=== PATIENT | female | born 1940 | race Caucasian/White ===

== ENCOUNTER 2017-06-22 21:15 | Inpatient (IN) | payer OTHER ==
[~2017-06-22] VITALS: Ht 152.4 cm; Wt 69.9 kg
[~2017-06-22 21:15] MED LIST: ACYCLOVIR 400400 MG PO; DENAVIR1.5 GM; FENOFIBRATE160 MG PO; GLYBURIDE 2.52.5 MG PO; LOPRESSOR50 PO; PENTOXIFYLLINE400 MG PO; TRAMADOL 50 MG50 MG PO; ZESTORETIC 20-1 EAC3 PO; ZOCOR40 MG PO; ZOFRAN4 MG PO
[2017-06-22] MEDS ORDERED: COZAAR 50 MG TA50 M2 PO (21:22)
[2017-06-22] MEDS ORDERED: SYNTHROID50 MCG PO (21:22)
[2017-06-22] MEDS ORDERED: ALDACTONE25 MG (21:22)
[2017-06-22] MEDS ORDERED: OMEPRAZOLE40 MG PO (21:23)
[2017-06-22] MEDS ORDERED: PENTOXIFYLLINE400 MG PO (21:23)
[2017-06-22] MEDS ORDERED: AMARYL2 MG PO (21:24)
[2017-06-22 21:25] VITALS: BP 163/56
[2017-06-22 21:49] LABS: URINE BILIRUBIN NEGATIVE (Negative); URINE BLOOD NEGATIVE (Negative); URINE CLARITY CLEAR; URINE COLOR YELLOW; URINE GLUCOSE-RANDOM NEGATIVE (Negative); URINE KETONES NEGATIVE (Negative); URINE LEUKOCYTES-REFLEX TRACE (Negative); URINE NITRITE-REFLEX NEGATIVE (Negative); URINE PROTEIN NEGATIVE (Negative); URINE UROBILINOGEN 0.2 E.U./dl (0.2-1.0)
[2017-06-22 21:53] LABS: ABSOLUTE EOSINOPHILS 0.1 thou/uL (0.0-0.7); ABSOLUTE LYMPHOCYTES 2.5 thou/uL (0.8-5.3); ABSOLUTE MONOCYTES 0.7 thou/uL (0.0-1.2); ABSOLUTE NEUTROPHILS 4.3 thou/uL (1.6-8.1); BASOPHILS 0.5 %; EOSINOPHILS 1.4 %; HEMATOCRIT 41.1 % (37.0-47.0); HEMOGLOBIN 12.9 gm/dL (12.0-15.0); LYMPHOCYTES 32.4 %; MCH 28.6 pg (26.0-34.0); MCHC 31.4 g/dL (28.0-37.0); MCV 91.2 fL (80.0-100.0); MONOCYTES 8.8 %; MPV 8.4 fl. (7.2-11.1); NUCLEATED RBCS 0 /100WBC; PLATELET COUNT* 233 thou/uL (150-400); POLYS 56.9 %; RBC 4.51 mil/uL (4.20-5.00); WBC 7.6 thou/uL (4.0-11.0)
[2017-06-22 21:58] LABS: CALCIUM 9.9 mg/dL (8.5-10.1); CREATININE 1.5 mg/dL (0.6-1.3); POTASSIUM 5.6 mmol/L (3.5-5.1)
[2017-06-22 22:03] LABS: ALBUMIN 3.6 g/dL (3.4-5.0); TOTAL BILIRUBIN 0.5 mg/dL (<0.1-1.0); TOTAL PROTEIN 7.8 g/dL (6.4-8.2)
[2017-06-22 22:26] LABS: HYALINE CASTS 0-3 Few /LPF (None Seen); MUCUS None Seen strn/LPF (None Seen); SQUAMOUS >10 Many /LPF (0-3)
[2017-06-22 22:27] LABS: BACTERIA-REFLEX 1-9 Few /HPF (None Seen); CRYSTALS None Seen /LPF (None Seen); URINE RBC None Seen /HPF (0-2); URINE WBC-REFLEX 0-5 Rare /HPF (0-5)
[2017-06-23 00:43] VITALS: BP 150/52
[2017-06-23 04:17] VITALS: BP 120/52
[2017-06-23 05:41] LABS: CALCIUM 9.5 mg/dL (8.5-10.1); CREATININE 1.2 mg/dL (0.6-1.3); POTASSIUM 5.8 mmol/L (3.5-5.1)
[2017-06-23 07:45] VITALS: BP 130/57
--- NOTE | 2017-06-23 12:00 | EKG ---
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 113 35 Ras Echeverria MD, FAC /EPI
[2017-06-23 12:23] VITALS: BP 148/37
[2017-06-23 12:49] LABS: POTASSIUM 5.7 mmol/L (3.5-5.1)
--- NOTE | 2017-06-23 15:21 | 2DMMODE ---
[place] [address] 2 D/M-MODE ECHOCARDIOGRAM Name: VIOLADANAKARINAYOUSIF Room: [place] [address] ADM IN [facility]#: [id number] Admission: 06/23/17 Attend Phys: Kenzie Leslie, Discharge: Date of : 42 Date of Service: 06/23/17 1520 Report #: [id number] THIS REPORT FOR: //name// APPROVED REPORT Study performed: 06/23/2017 10:20:28 EXAM: Comprehensive 2D, Doppler, and color-flow Echocardiogram Patient Location: In-Patient Room #: [facility] Status: routine BSA: 1.67 HR: 56 bpm BP: 130/57 mmHg Rhythm: NSR Other Information Study Quality: Good Indications Hypertension/HDD Hyperkalemia, elevated potassium 2D Dimensions LVEF(%): 66.72 (>50%) IVSd: 16.97 (7-11mm) LVOT Diam: 21.47 (18-24mm) LVDd: 43.09 mm PWd: 12.35 (7-11mm) Ascending Ao: 29.93 (22-36mm) LVDs: 27.31 (25-40mm) Aortic Root: 28.43 mm Ceballos's LVEF: 66.72 % Volumes Left Atrial Volume (Systole) LA ESV Index: 26.60 mL/m2 Aortic Valve AoV Peak Munir.: 1.23 m/s AO Peak Gr.: 6.06 mmHg LVOT Max P.00 mmHg AO Mean Gr.: 2.86 mmHg LVOT Mean P.25 mmHg LVOT Max V: 0.87 m/s AO V2 VTI: 29.20 cm LVOT Mean V: 0.50 m/s BILLIE (VTI): 2.70 cm2 LVOT V1 VTI: 21.75 [place] [address] 2 D/M-MODE ECHOCARDIOGRAM Name: YOUSIF PINZON Room: [address] IN .R.#: [id number] Admission: 06/23/17 Attend Phys: Kenzie Leslie, Discharge: Date of : 42 Date of Service: 06/23/17 1520 Report #: [id number] E/A Ratio: 0.95 MV Decel. Time: 215.48 ms MV E Max Munir.: 0.71 m/s MV PHT: 62.49 ms MVA (PHT): 3.52 cm2 TDI E/Lateral E': 5.92 E/Medial E': 10.14 Medial E' Munir.: 0.07 m/s Lateral E' Munir.: 0.12 m/s Pulmonary Valve PV Peak Munir.: 0.90 m/s PV Peak Gr.: 3.27 mmHg Tricuspid Valve TR Peak Gr.: 24.54 mmHg RVSP: 29.00 mmHg Left Ventricle The left ventricle is normal size. There is normal LV segmental wall motion. Mild concentric left ventricular hypertrophy. Left ventricular systolic function is normal. The left ventricular ejection fraction is within the normal range. LVEF is 55-60%. The left ventricular diastolic function is normal. Right Ventricle The right ventricle is normal size. The right ventricular systolic function is normal. Atria The left atrium size is normal. The right atrium size is normal. Aortic Valve The aortic valve is normal in structure. No aortic regurgitation is present. There is no aortic valvular stenosis. Mitral Valve The mitral valve is normal in structure. Trace mitral regurgitation. No evidence of mitral valve stenosis. Tricuspid Valve The tricuspid valve is normal in structure. Trace tricuspid regurgitation. The RVSP is ___29____ mmHg. Pulmonic Valve The pulmonary valve is normal in structure. There [place] [address] 2 D/M-MODE ECHOCARDIOGRAM Name: VIOLADANAKARINAYOUSIF Room: [address] IN M.R.#: [id number] Admission: 06/23/17 Attend Phys: Kenzie Leslie, Discharge: Date of : 42 Date of Service: 06/23/17 1520 Report #: [id number] valvular regurgitation. Great Vessels The aortic root is normal in size. IVC is normal in size and collapses with >50% inspiration Pericardium There is no pericardial effusion. <Conclusion> Mild concentric left ventricular hypertrophy. LVEF is 55-60%. <ELECTRONICALLY SIGNED> By: Ras Echeverria MD, FACC 06/23/17 1520 1520 1520 Ras Echeverria MD, FACC /INF
[2017-06-23 16:23] VITALS: BP 121/63
[2017-06-23 19:57] VITALS: BP 125/54
[2017-06-24] VITALS: BP 131/53
[2017-06-24 02:12] LABS: HEPATITIS B SURFACE AG Negative (Negative)
[2017-06-24 04:00] VITALS: BP 129/60
[2017-06-24 05:36] LABS: HEMATOCRIT 33.2 % (37.0-47.0); MCHC 32.4 g/dL (28.0-37.0); MCV 89.5 fL (80.0-100.0); MPV 8.6 fl. (7.2-11.1); RBC 3.71 mil/uL (4.20-5.00); RDW-CV 16.8 % (10.5-14.5); WBC 6.6 thou/uL (4.0-11.0)
[2017-06-24 05:42] LABS: HEMOGLOBIN 10.7 gm/dL (12.0-15.0)
[2017-06-24 05:48] LABS: ALBUMIN 2.8 g/dL (3.4-5.0); CALCIUM 8.6 mg/dL (8.5-10.1); CREATININE 1.3 mg/dL (0.6-1.3); MAGNESIUM 1.4 mg/dL (1.8-2.4); POTASSIUM 5.2 mmol/L (3.5-5.1); TOTAL BILIRUBIN 0.2 mg/dL (<0.1-1.0); TOTAL PROTEIN 6.2 g/dL (6.4-8.2)
[2017-06-24 08:22] VITALS: BP 123/56
[2017-06-24 11:51] VITALS: BP 140/53
[2017-06-24 16:54] VITALS: BP 138/73
[2017-06-24 20:00] VITALS: BP 133/57
[2017-06-25 00:02] VITALS: BP 139/53
[2017-06-25 04:20] VITALS: BP 130/54
[2017-06-25 04:45] LABS: HEMATOCRIT 32.3 % (37.0-47.0); HEMOGLOBIN 10.7 gm/dL (12.0-15.0); MCH 29.4 pg (26.0-34.0); MPV 8.4 fl. (7.2-11.1); RBC 3.63 mil/uL (4.20-5.00); RDW-CV 16.4 % (10.5-14.5); WBC 7.1 thou/uL (4.0-11.0)
[2017-06-25 05:13] LABS: ALBUMIN 2.8 g/dL (3.4-5.0); CALCIUM 9.1 mg/dL (8.5-10.1); POTASSIUM 5.1 mmol/L (3.5-5.1); TOTAL BILIRUBIN 0.3 mg/dL (<0.1-1.0); TOTAL PROTEIN 6.2 g/dL (6.4-8.2)
[2017-06-25 08:51] VITALS: BP 145/54
[2017-06-25 13:36] LABS: CALCIUM 8.7 mg/dL (8.5-10.1); CREATININE 1.2 mg/dL (0.6-1.3); MAGNESIUM 1.6 mg/dL (1.8-2.4); POTASSIUM 5.3 mmol/L (3.5-5.1)
[2017-06-25 16:00] VITALS: BP 121/55
[2017-06-25 23:36] VITALS: BP 125/50
[2017-06-26 04:29] LABS: HEMATOCRIT 34.3 % (37.0-47.0); HEMOGLOBIN 11.2 gm/dL (12.0-15.0); MCH 29.1 pg (26.0-34.0); MCHC 32.6 g/dL (28.0-37.0); MCV 89.2 fL (80.0-100.0); MPV 8.6 fl. (7.2-11.1); RBC 3.85 mil/uL (4.20-5.00); RDW-CV 16.6 % (10.5-14.5); WBC 9.3 thou/uL (4.0-11.0)
[2017-06-26 04:47] LABS: CALCIUM 8.9 mg/dL (8.5-10.1); CREATININE 1.1 mg/dL (0.6-1.3); MAGNESIUM 1.6 mg/dL (1.8-2.4); POTASSIUM 5.6 mmol/L (3.5-5.1); TOTAL BILIRUBIN 0.2 mg/dL (<0.1-1.0); TOTAL PROTEIN 6.6 g/dL (6.4-8.2)
[2017-06-26 08:15] VITALS: BP 150/62
[2017-06-27] VITALS: BP 153/73
[2017-06-27 00:10] VITALS: BP 150/67
[2017-06-27 04:29] LABS: HEMATOCRIT 32.3 % (37.0-47.0); HEMOGLOBIN 10.6 gm/dL (12.0-15.0); MCH 29.4 pg (26.0-34.0); MCHC 32.9 g/dL (28.0-37.0); MCV 89.4 fL (80.0-100.0); MPV 8.7 fl. (7.2-11.1); RBC 3.61 mil/uL (4.20-5.00); RDW-CV 16.1 % (10.5-14.5); WBC 8.2 thou/uL (4.0-11.0)
[2017-06-27 04:49] LABS: CALCIUM 8.7 mg/dL (8.5-10.1); CREATININE 1.1 mg/dL (0.6-1.3); MAGNESIUM 1.8 mg/dL (1.8-2.4); POTASSIUM 4.8 mmol/L (3.5-5.1)
[2017-06-27 08:00] VITALS: BP 141/52
[2017-06-27 13:07] VITALS: BP 141/52
[2017-06-27] MEDS ORDERED: CARDIZEM CD120 MG PO (13:55)
[2017-06-27 23:06] LABS: HEPATITIS B SURFACE AG Negative (Negative)
--- NOTE | 2017-06-30 16:13 | CON ---
[address] [address] CONSULTATION Name: VIOLADANAKARINAYOUSIF M Room: [address] IN .R.#: [id number] Admission: 06/23/17 Attend Phys: Kenzie Leslie MD Discharge: 06/27/17 Date of : 42 Report #: [id number] THIS REPORT FOR: //name// CC: Kenzie Galomaddieneelima ____ ____ DATE OF SERVICE: 06/27/2017 REQUESTING PHYSICIAN: Dr. Kenzie Leslie. HISTORY OF PRESENT ILLNESS: This is a 77-year-old female who has been taking spironolactone and potassium together and her primary care called and let her know that she should come to hospital as she has had critical levels of potassium. The patient reports that her symptoms were nausea and dry heaving, but denied any abdominal pain, diarrhea, constipation, hematochezia, melena or hematemesis. The patient found to have elevated transaminases and mildly elevated alkaline phosphatase during that admission. Abdominal CT and ultrasound were unrevealing. She is currently completely asymptomatic. She denies nausea, vomiting, diarrhea, or abdominal pain. Her transaminases are down trending and AST is near normal. PAST MEDICAL HISTORY: Significant for history of diabetes; hypertension; history of gallbladder disease, status post cholecystectomy; peripheral vascular disease; asthma; chronic B12 deficiency; hysterectomy; arthritis; history of CVA; history of DVT; eye surgery; tonsillectomy; and femoral artery stenting. ALLERGIES: SIGNIFICANT FOR METFORMIN, CODEINE, NIACIN, PENICILLIN, AND QUININE. MEDICATIONS: Please refer to hospital [facility]. SOCIAL HISTORY: The patient lives at home. Denies tobacco or alcohol use. FAMILY HISTORY: Significant for diabetes and unknown type of malignancy. PHYSICAL EXAMINATION: VITAL SIGNS: Reveals blood pressure of 141/52, respirations 16, pulse 59, temperature 97.9. LUNGS: Clear. CARDIOVASCULAR: Regular. ABDOMEN: Soft, nontender, nondistended. Bowel sounds are positive. LABORATORY DATA: Reveal sodium of 143; potassium 4.8 down from 5.8; BUN is 16; creatinine 1.1; glucose 108. AST is 49, down from 401; ALT is 118, [place] [address] CONSULTATION Name: YOUSIF PINZON Room: [address]#: [id number] Admission: 06/23/17 Attend Phys: Kenzie Leslie MD Discharge: 06/27/17 Date of : 42 Report #: [id number]; and alkaline phosphatase is 143, down from 186. Total bilirubin is 0.2. INR is 1.1. WBC is 8.2 with hemoglobin of 10.6 and platelets of 176. IMAGING: As discussed above. ASSESSMENT AND PLAN: The patient with elevated potassium, which prompted her to get admitted to the hospital and she was found to have transaminitis, which has been down trending. This is most probably medication-induced, but we will obtain viral hepatitis serology. Since the patient is completely asymptomatic and LFTs are down trending and imaging associated with liver and bile duct are negative, we will consider discharging her home and repeating LFTs in a week as we follow up with her in clinic. The patient is agreeable with plan. <ELECTRONICALLY SIGNED> By: Adriana Shoemaker MD 06/30/17 1613 1037 [id number] Shoemaker MD /nt
== END 2017-06-27 14:24 | disposition home or self-care (01) | DRG 683 ==
LOC: M.ERS 21:15 → M.TBA-ER 23:09 → M.2W 23:09 → M.ORTHSURG 06-24 15:08
PROVIDERS: Emergency Medicine; Family Medicine; Internal Medicine Gastroenterology; ADMIT Internal Medicine
DX: N17.9 Acute kidney failure, unspecified (principal); E44.1 Mild protein-calorie malnutrition; A08.4 Viral intestinal infection, unspecified; J45.909 Unspecified asthma, uncomplicated; M19.90 Unspecified osteoarthritis, unspecified site; E87.5 Hyperkalemia; E86.0 Dehydration; I12.9 Hypertensive chronic kidney disease with stage 1 through stage 4 chronic kidney disease, or unspecified chronic kidney disease; E11.51 Type 2 diabetes mellitus with diabetic peripheral angiopathy without gangrene; E11.22 Type 2 diabetes mellitus with diabetic chronic kidney disease; R74.0 Nonspecific elevation of levels of transaminase and lactic acid dehydrogenase [LDH]; N18.9 Chronic kidney disease, unspecified; E53.8 Deficiency of other specified B group vitamins; E83.42 Hypomagnesemia; Z79.899 Other long term (current) drug therapy; Z90.710 Acquired absence of both cervix and uterus; Z90.49 Acquired absence of other specified parts of digestive tract; Z86.73 Personal history of transient ischemic attack (TIA), and cerebral infarction without residual deficits; Z86.718 Personal history of other venous thrombosis and embolism; Z88.6 Allergy status to analgesic agent; Z88.1 Allergy status to other antibiotic agents; Z88.0 Allergy status to penicillin; Z83.3 Family history of diabetes mellitus; Z68.30 Body mass index [BMI] 30.0-30.9, adult; Z95.820 Peripheral vascular angioplasty status with implants and grafts

== ENCOUNTER → 2017-07-06 | Outpatient (CLI) | payer OTHER ==
[~2017-07-06] MED LIST changes: +ALDACTONE25 MG; +AMARYL2 MG PO; +CARDIZEM CD120 MG PO; +COZAAR 50 MG TA50 M2 PO; +FISH OIL 1,001000 M2 PO; +OMEPRAZOLE40 MG PO; +ROBAXIN500 MG PO; +SIMVASTATIN40 MG PO; +SYNTHROID50 MCG PO; +VITAMIN D2000 UNIT PO
== END ==
LOC: M.NUC 06:56
DX: K83.9 Disease of biliary tract, unspecified (principal); Z90.49 Acquired absence of other specified parts of digestive tract

== ENCOUNTER 2017-10-11 14:27 | Inpatient (IN) | payer OTHER ==
[~2017-10-11] VITALS: Ht 152.4 cm; Wt 64.9 kg
[~2017-10-11 14:27] MED LIST changes: -FISH OIL 1,001000 M2 PO; -ROBAXIN500 MG PO; -SIMVASTATIN40 MG PO; -VITAMIN D2000 UNIT PO
[2017-10-11 14:48] LABS: ABSOLUTE EOSINOPHILS 0.1 thou/uL (0.0-0.7); ABSOLUTE LYMPHOCYTES 2.3 thou/uL (0.8-5.3); ABSOLUTE MONOCYTES 0.5 thou/uL (0.0-1.2); BASOPHILS 0.5 %; EOSINOPHILS 0.9 %; HEMATOCRIT 38.6 % (37.0-47.0); HEMOGLOBIN 12.5 gm/dL (12.0-15.0); MCH 28.8 pg (26.0-34.0); MCHC 32.5 g/dL (28.0-37.0); MCV 88.7 fL (80.0-100.0); MONOCYTES 6.2 %; MPV 8.3 fl. (7.2-11.1); NUCLEATED RBCS 0 /100WBC; PLATELET COUNT* 216 thou/uL (150-400); POLYS 63.4 %; RBC 4.35 mil/uL (4.20-5.00); RDW-CV 15.3 % (10.5-14.5); WBC 7.9 thou/uL (4.0-11.0)
[2017-10-11 14:57] LABS: ANION GAP 12 mmol/L (7-16); BUN 32 mg/dL (7-18); CALCIUM 9.3 mg/dL (8.5-10.1); CHLORIDE 103 mmol/L (98-107); CO2 23 mmol/L (21-32); CREATININE 1.5 mg/dL (0.6-1.3); GLUCOSE 222 mg/dL (70-99); POTASSIUM 3.9 mmol/L (3.5-5.1); SODIUM 138 mmol/L (136-145)
[2017-10-11 15:03] LABS: ALBUMIN 3.4 g/dL (3.4-5.0); ALKALINE PHOSPHATASE 113 U/L (46-116); LIPASE 201 U/L (73-393); SGOT 15 U/L (15-37); SGPT 36 U/L (30-65); TOTAL BILIRUBIN 0.4 mg/dL (<0.1-1.0); TOTAL PROTEIN 7.2 g/dL (6.4-8.2); TROPONIN-I LEVEL <0.06 ng/mL (<0.06)
--- NOTE | 2017-10-11 16:25 | EKG ---
[place] [address] ELECTROCARDIOGRAM REPORT Name: YOUSIF PINZON Room: [facility]#: [id number] Admission: 10/11/17 Attend Phys: Discharge: Date of : 42 Report #: [id number] THIS REPORT FOR: //name// [facility] ED Test Date: 2017-10-11 Test Time: 14:42:31 Pat Name: YOUSIF PINZON Department: Room: Gender: F Hospital Laboratory Technician: BRENTON : 1940 Requested By: Jarret Edmonds Order Number: [id number] MD: Ras Echeverria Measurements Intervals [place] Rate: 72 P: 38 ME: 184 QRS: -24 QRSD: 94 T: 34 QT: 443 QTc: 485 Interpretive Statements Sinus arrhythmia Borderline left axis deviation Abnormal R-wave progression, early transition Consider anterior infarct Compared to ECG 06/23/2017 11:36:57 Myocardial infarct finding now present Sinus bradycardia no longer present Electronically Signed On 10-11-2017 16:25:04 CDT by Ras Echeverria [email or web address] <ELECTRONICALLY SIGNED> By: Ras Echeverria MD, [facility] 10/11/17 1625 1442 1442 Ras Echeverria MD, [facility] /EPI
[2017-10-11 16:30] LABS: URINE BILIRUBIN NEGATIVE (Negative); URINE BLOOD NEGATIVE (Negative); URINE CLARITY CLEAR; URINE COLOR YELLOW; URINE GLUCOSE-RANDOM NEGATIVE (Negative); URINE KETONES NEGATIVE (Negative); URINE LEUKOCYTES-REFLEX NEGATIVE (Negative); URINE NITRITE-REFLEX NEGATIVE (Negative); URINE PROTEIN NEGATIVE (Negative); URINE UROBILINOGEN 0.2 E.U./dl (0.2-1.0)
[2017-10-11 17:21] VITALS: BP 147/50
[2017-10-11 20:30] VITALS: BP 150/76
[2017-10-11 23:37] VITALS: BP 124/58
[2017-10-12 03:47] VITALS: BP 135/51
[2017-10-12 04:34] LABS: ABSOLUTE EOSINOPHILS 0.1 thou/uL (0.0-0.7); ABSOLUTE LYMPHOCYTES 2.5 thou/uL (0.8-5.3); ABSOLUTE MONOCYTES 0.6 thou/uL (0.0-1.2); ABSOLUTE NEUTROPHILS 4.8 thou/uL (1.6-8.1); BASOPHILS 0.2 %; EOSINOPHILS 1.1 %; HEMATOCRIT 36.2 % (37.0-47.0); HEMOGLOBIN 11.7 gm/dL (12.0-15.0); LYMPHOCYTES 31.6 %; MCHC 32.3 g/dL (28.0-37.0); MCV 89.7 fL (80.0-100.0); MONOCYTES 7.5 %; MPV 8.5 fl. (7.2-11.1); NUCLEATED RBCS 0 /100WBC; PLATELET COUNT* 194 thou/uL (150-400); POLYS 59.6 %; RBC 4.03 mil/uL (4.20-5.00); WBC 8.1 thou/uL (4.0-11.0)
[2017-10-12 05:12] LABS: CALCIUM 8.7 mg/dL (8.5-10.1); CREATININE 1.2 mg/dL (0.6-1.3); POTASSIUM 4.4 mmol/L (3.5-5.1)
[2017-10-12] MEDS ORDERED: PENTOXIFYLLINE400 MG PO (07:54)
[2017-10-12] MEDS ORDERED: SIMVASTATIN40 MG PO (07:55)
[2017-10-12] MEDS ORDERED: FISH OIL 1,001000 M2 PO (07:56)
[2017-10-12] MEDS ORDERED: AMARYL2 MG PO (07:56)
[2017-10-12] MEDS ORDERED: VITAMIN D2000 UNIT PO (07:57)
[2017-10-12 08:00] VITALS: BP 126/64
== END 2017-10-12 16:45 | disposition home or self-care (01) | DRG 684 ==
LOC: M.ERS 14:27 → M.3W 16:31 → M.TBA-ER 16:31 → M.3W 17:24
PROVIDERS: Family Medicine; ADMIT Internal Medicine
DX: N17.9 Acute kidney failure, unspecified (principal); A08.4 Viral intestinal infection, unspecified; E86.0 Dehydration; J45.909 Unspecified asthma, uncomplicated; I73.9 Peripheral vascular disease, unspecified; G62.9 Polyneuropathy, unspecified; M19.90 Unspecified osteoarthritis, unspecified site; F41.9 Anxiety disorder, unspecified; Z86.73 Personal history of transient ischemic attack (TIA), and cerebral infarction without residual deficits; Z79.899 Other long term (current) drug therapy; Z90.710 Acquired absence of both cervix and uterus; Z90.49 Acquired absence of other specified parts of digestive tract; Z88.6 Allergy status to analgesic agent; Z88.0 Allergy status to penicillin; Z88.8 Allergy status to other drugs, medicaments and biological substances; Z86.718 Personal history of other venous thrombosis and embolism; Z83.3 Family history of diabetes mellitus; Z80.8 Family history of malignant neoplasm of other organs or systems

== ENCOUNTER → 2018-03-09 | Outpatient (CLI) | payer OTHER ==
[~2018-03-09] MED LIST changes: +FISH OIL 1,001000 M2 PO; +SIMVASTATIN40 MG PO; +VITAMIN D2000 UNIT PO
== END ==
LOC: M.RAD 10:45
DX: Z12.31 Encounter for screening mammogram for malignant neoplasm of breast (principal)

== ENCOUNTER 2018-04-17 17:47 | Emergency (ER) | payer OTHER ==
[~2018-04-17] VITALS: Ht 152.4 cm; Wt 67.6 kg
[2018-04-17] MEDS ORDERED: ROBAXIN500 MG PO (18:55)
[2018-04-17 19:11] VITALS: BP 125/74
== END 2018-04-17 19:12 | disposition home or self-care (01) ==
LOC: M.ERS 17:47
DX: S43.492A Other sprain of left shoulder joint, initial encounter (principal); S80.02XA Contusion of left knee, initial encounter; S00.83XA Contusion of other part of head, initial encounter; I73.9 Peripheral vascular disease, unspecified; M19.90 Unspecified osteoarthritis, unspecified site; E11.9 Type 2 diabetes mellitus without complications; J45.909 Unspecified asthma, uncomplicated; Z88.0 Allergy status to penicillin; Z88.5 Allergy status to narcotic agent; Z88.8 Allergy status to other drugs, medicaments and biological substances; Z86.73 Personal history of transient ischemic attack (TIA), and cerebral infarction without residual deficits; Z86.718 Personal history of other venous thrombosis and embolism; Z90.710 Acquired absence of both cervix and uterus; Z90.49 Acquired absence of other specified parts of digestive tract; W17.89XA Other fall from one level to another, initial encounter; Y93.89 Activity, other specified; Y92.89 Other specified places as the place of occurrence of the external cause; Y99.8 Other external cause status

== ENCOUNTER 2019-01-02 14:29 | Inpatient (IN) | payer OTHER ==
[~2019-01-02] VITALS: Ht 152.4 cm; Wt 67.1 kg
[~2019-01-02 14:29] MED LIST changes: +ROBAXIN500 MG PO
[2019-01-02 14:31] VITALS: BP 164/115
[2019-01-02 14:44] LABS: ABSOLUTE BASOPHILS 0.1 thou/uL (0.0-0.2); ABSOLUTE EOSINOPHILS 0.1 thou/uL (0.0-0.7); ABSOLUTE LYMPHOCYTES 1.7 thou/uL (0.8-5.3); ABSOLUTE MONOCYTES 0.6 thou/uL (0.0-1.2); ABSOLUTE NEUTROPHILS 6.2 thou/uL (1.6-8.1); BASOPHILS 0.6 %; EOSINOPHILS 0.9 %; HEMATOCRIT 37.4 % (37.0-47.0); HEMOGLOBIN 12.1 gm/dL (12.0-15.0); LYMPHOCYTES 19.9 %; MCH 28.5 pg (26.0-34.0); MCHC 32.4 g/dL (28.0-37.0); MCV 87.8 fL (80.0-100.0); MONOCYTES 6.5 %; NUCLEATED RBCS 0 /100WBC; PLATELET COUNT* 187 thou/uL (150-400); POLYS 72.1 %; RBC 4.26 mil/uL (4.20-5.00); RDW-CV 15.9 % (10.5-14.5); WBC 8.6 thou/uL (4.0-11.0)
[2019-01-02 15:01] LABS: ANION GAP 11 mmol/L (7-16); BUN 34 mg/dL (7-18); CALCIUM 9.2 mg/dL (8.5-10.1); CHLORIDE 105 mmol/L (98-107); CO2 24 mmol/L (21-32); CREATININE 1.4 mg/dL (0.6-1.3); GLUCOSE 225 mg/dL (70-99); POTASSIUM 4.9 mmol/L (3.5-5.1); SODIUM 140 mmol/L (136-145)
[2019-01-02 15:02] LABS: ALBUMIN 2.9 g/dL (3.4-5.0); ALKALINE PHOSPHATASE 70 U/L (46-116); LIPASE 170 U/L (73-393); SGOT 16 U/L (15-37); SGPT 26 U/L (30-65); TOTAL BILIRUBIN 0.1 mg/dL (<0.1-1.0); TOTAL PROTEIN 6.5 g/dL (6.4-8.2); TROPONIN-I LEVEL <0.06 ng/mL (<0.06)
[2019-01-02 16:36] VITALS: BP 136/62
[2019-01-02] MEDS ORDERED: SIMVASTATIN40 MG PO (17:18)
--- NOTE | 2019-01-02 17:56 | NUR ---
PT ADMITTED TO TELEMETRY ROOM 231 WITH A DIAGNOSIS OF CHEST PAIN. PT CONITNUES TO C/O CHEST PRESSURE, BUT REPORTS THAT IT IS BETTER. PT TRACING SB ON TELEMETRY. VSS. PT IS ALERT & ORIENTED AND ABLE TO VOICE ALL NEEDS. PT DENIES ANY FURTHER NEEDS AT THIS TIME. ASSESSMENT COMPLETED CHARTED. HOURLY ROUNDING AND FALL PRECAUTIONS IN PLACE. CLWR.
[2019-01-02 20:36] VITALS: BP 148/58
[2019-01-03] VITALS: BP 146/56
[2019-01-03 04:00] VITALS: BP 133/80
--- NOTE | 2019-01-03 04:42 | NUR ---
PATIENT PROGRESSING TOWARDS GOALS: VSS ON ROOM AIR. NO SYNCOPAL EPISODES. PATIENT DENIES CHEST PAIN AND DISCOMFORT. NPO FOR CARDIOLOGY CONSULT. CALL LIGHT WITHIN REACH.
[2019-01-03 05:13] LABS: ABSOLUTE EOSINOPHILS 0.1 thou/uL (0.0-0.7); ABSOLUTE LYMPHOCYTES 2.3 thou/uL (0.8-5.3); ABSOLUTE MONOCYTES 0.4 thou/uL (0.0-1.2); ABSOLUTE NEUTROPHILS 4.2 thou/uL (1.6-8.1); BASOPHILS 0.6 %; EOSINOPHILS 1.2 %; HEMATOCRIT 35.3 % (37.0-47.0); HEMOGLOBIN 11.7 gm/dL (12.0-15.0); MCH 29.2 pg (26.0-34.0); MCHC 33.2 g/dL (28.0-37.0); MONOCYTES 6.1 %; MPV 8.5 fl. (7.2-11.1); NUCLEATED RBCS 0 /100WBC; PLATELET COUNT* 180 thou/uL (150-400); POLYS 60.1 %; RBC 4.01 mil/uL (4.20-5.00); RDW-CV 15.7 % (10.5-14.5); WBC 7.1 thou/uL (4.0-11.0)
[2019-01-03 05:20] LABS: CALCIUM 9.1 mg/dL (8.5-10.1); CREATININE 1.1 mg/dL (0.6-1.3); POTASSIUM 4.5 mmol/L (3.5-5.1)
[2019-01-03 07:00] VITALS: BP 152/59
--- NOTE | 2019-01-03 09:10 | NUR ---
INITAL ASSESSMENT COMPLETED CHARTED. VSS. TRACING SB ON MONITOR. PT IS CURRENTLY NPO FOR CARDIAC TESTING. UP SBA WITH STEADY GAIT. PT DENIES PAIN. HOURLY ROUNDING AND FALL PRECAUTIONS IN PLACE FOR PT SAFETY. CLWR.
[2019-01-03 09:32] LABS: CHOLESTEROL 170 mg/dL (<200); HDL CHOLESTEROL 32 mg/dL (>40); LDL CHOLESTEROL 80 mg/dL (<100); SERUM ASSESSMENT Clear; TC:HDL 5.3 Ratio (Not establshd); TRIGLYCERIDE 292 mg/dL (<150); VLDL 58 mg/dL (<40)
[2019-01-03 12:04] VITALS: BP 120/80
--- NOTE | 2019-01-03 16:41 | NUR ---
SW met with pt to complete initial assessment and discuss safe dc planning. Pt lives at [facility] and is independent with ADLs and mobility. Pt has a friend who lives in the same apt; pt explained that his health is failing, sounds as if he may be on hospice; pt friend has all DME but pt said pt also has DME if she were to ever need it. Pt does not have any hx of HH services. Pt says her dtr is still supportive and would provide any assistance if needed. SW to continue to follow.
[2019-01-04] VITALS: BP 141/64
[2019-01-04 04:30] VITALS: BP 129/58
--- NOTE | 2019-01-04 05:45 | NUR ---
ASSUMED PATIENT CARE AT 1900. PATIENT ALERT AND ORIENTED TIMES FOUR. TEST RESULTS EXPLAINED AND PATIENT VERBALIZED UNDERSTANDING. RESEARCH BIOLOGIST AND HOURLY ROUNDING COMPLETED CHARTED. NO COMPLAINTS OF PAIN OR DISCOMFORT NOTED
[2019-01-04 08:00] VITALS: BP 143/62
[2019-01-04] MEDS ORDERED: NORVASC5 MG PO (11:27)
[2019-01-04 11:29] VITALS: BP 143/62
[2019-01-04 12:00] VITALS: BP 132/63
[2019-01-04] MEDS ORDERED: LIPITOR40 MG PO (12:37)
--- NOTE | 2019-01-04 13:00 | NUR ---
ASSUMED CARE OF PT AT 0730. PT RESTING IN CHAIR WAITING FOR BREAKFAST. PT A&0X4, STATES SHE IS READY TO GO HOME TODAY. DENIES ANY PAIN OR SHORTNESS OF BREATH AT THIS TIME. PT TRACING SB ON THE NUTRITIONISTS. RATE IN THE LOW 50'S. PT ON RA SAT 96%. PT UP AD PAULINE IN ROOM. PT GOAL FOR TODAY IS DISCHARGE PLANNING TO HOME. AM ASSESSMENT CHARTED. MEDICATIONS PER MAR. PT REPOSITIONS SELF. HOURLY ROUNDING OBSERVED. BED IN LOW POSITION. CALL LIGHT WITHIN REACH. WILL CONTINUE PLAN OF CARE.
--- NOTE | 2019-01-04 13:28 | NUR ---
DISCHARGE ORDERS RECEIVED. DISCHARGE INSTRUCTIONS, CARE NOTES, SCRIPTS AND FOLLOW UP APPTS GIVEN TO PT. PT COMMUNICATES UNDERSTANDING OF DISCHARGE TEACHING. IV AND FOREST NURSERY WORKER REMOVED. PT DISCHARGED WITH ALL BELONGINGS AND PAPERWORK VIA WHEELCHAIR WITH [employer] TO DAUGHTERS OWN PERSONAL VEHICLE.
== END 2019-01-04 13:30 | disposition home or self-care (01) | DRG 392 ==
LOC: M.ERS 14:29 → M.TBA-ER 15:32 → M.2W 15:32
PROVIDERS: Emergency Medicine Emergency Medical Services; Registered Nurse; ADMIT Internal Medicine
DX: K21.9 Gastro-esophageal reflux disease without esophagitis (principal); R00.1 Bradycardia, unspecified; E11.51 Type 2 diabetes mellitus with diabetic peripheral angiopathy without gangrene; J45.909 Unspecified asthma, uncomplicated; E78.5 Hyperlipidemia, unspecified; I10 Essential (primary) hypertension; M19.90 Unspecified osteoarthritis, unspecified site; Z90.49 Acquired absence of other specified parts of digestive tract; Z90.710 Acquired absence of both cervix and uterus; Z86.73 Personal history of transient ischemic attack (TIA), and cerebral infarction without residual deficits; Z86.718 Personal history of other venous thrombosis and embolism; Z79.899 Other long term (current) drug therapy; Z88.0 Allergy status to penicillin; Z88.5 Allergy status to narcotic agent; Z88.8 Allergy status to other drugs, medicaments and biological substances; Z95.820 Peripheral vascular angioplasty status with implants and grafts

== ENCOUNTER 2019-12-07 10:30 | Emergency (ER) | payer MEDICARE ==
[~2019-12-07] VITALS: Ht 152.4 cm; Wt 69.8 kg
[~2019-12-07 10:30] MED LIST changes: +LIPITOR40 MG PO; +NORVASC5 MG PO
[2019-12-07 10:52] LABS: ABSOLUTE BASOPHILS 0.1 thou/uL (0.0-0.2); ABSOLUTE EOSINOPHILS 0.1 thou/uL (0.0-0.7); ABSOLUTE MONOCYTES 0.6 thou/uL (0.0-1.2); ABSOLUTE NEUTROPHILS 5.7 thou/uL (1.6-8.1); BASOPHILS 1.2 %; EOSINOPHILS 1.1 %; HEMATOCRIT 39.7 % (37.0-47.0); HEMOGLOBIN 13.1 gm/dL (12.0-15.0); LYMPHOCYTES 23.7 %; MCH 29.6 pg (26.0-34.0); MCHC 33.1 g/dL (28.0-37.0); MCV 89.4 fL (80.0-100.0); MPV 8.1 fl. (7.2-11.1); NUCLEATED RBCS 0 /100WBC; PLATELET COUNT* 274 thou/uL (150-400); RBC 4.44 mil/uL (4.20-5.00); RDW-CV 15.5 % (10.5-14.5); WBC 8.6 thou/uL (4.0-11.0)
[2019-12-07 10:53] LABS: URINE BILIRUBIN NEGATIVE (Negative); URINE BLOOD NEGATIVE (Negative); URINE CLARITY CLEAR; URINE COLOR YELLOW; URINE GLUCOSE-RANDOM NEGATIVE (Negative); URINE KETONES NEGATIVE (Negative); URINE LEUKOCYTES-REFLEX TRACE (Negative); URINE NITRITE-REFLEX NEGATIVE (Negative); URINE PROTEIN 2+ (Negative); URINE SPECIFIC GRAVITY 1.025 (1.005-1.030); URINE UROBILINOGEN 0.2 E.U./dl (0.2-1.0)
[2019-12-07 11:00] LABS: CASTS None Seen /LPF (None Seen); CRYSTALS None Seen /LPF (None Seen); MUCUS 0-3 Light strn/LPF (None Seen); SQUAMOUS 4-10 Moderate /LPF (0-3); URINE RBC 0-2 Rare /HPF (0-2); URINE WBC-REFLEX 0-5 Rare /HPF (0-5)
[2019-12-07 11:02] LABS: CREATININE 1.1 mg/dL (0.6-1.3); POTASSIUM 4.1 mmol/L (3.5-5.1)
[2019-12-07 11:13] LABS: ALBUMIN 3.3 g/dL (3.4-5.0); APTT 23.7 Seconds (25.0-31.3); TOTAL BILIRUBIN 0.2 mg/dL (<0.1-1.0); TOTAL PROTEIN 7.8 g/dL (6.4-8.2)
[2019-12-07 13:23] VITALS: BP 118/67
--- NOTE | 2019-12-07 16:20 | EKG ---
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: : 1940 Requested By: Jarret Edmonds Order Number: [id number] MD: Blake Madden Measurements Intervals [place] Rate: 64 P: -41 [place]: 179 QRS: -26 QRSD: 88 T: 16 QT: 408 QTc: 421 Interpretive Statements Sinus rhythm Borderline left axis deviation Compared to ECG 01/02/2019 14:39:49 Sinus bradycardia no longer present Left ventricular hypertrophy no longer present Electronically Signed On 12-07-2019 16:20:39 CDT by Blake Madden [email or web address] <ELECTRONICALLY SIGNED> By: Blake Madden MD, [facility] 12/07/19 1620 1119 1119 Blake Madden MD, [facility] /EPI
== END 2019-12-07 13:23 | disposition home or self-care (01) ==
LOC: M.ERS 10:30
PROVIDERS: Family Medicine
DX: R60.0 Localized edema (principal); E11.9 Type 2 diabetes mellitus without complications; J45.909 Unspecified asthma, uncomplicated; M19.90 Unspecified osteoarthritis, unspecified site; Z90.710 Acquired absence of both cervix and uterus; Z90.49 Acquired absence of other specified parts of digestive tract; Z86.73 Personal history of transient ischemic attack (TIA), and cerebral infarction without residual deficits; Z86.718 Personal history of other venous thrombosis and embolism; Z88.0 Allergy status to penicillin; Z88.6 Allergy status to analgesic agent; Z88.8 Allergy status to other drugs, medicaments and biological substances

== ENCOUNTER 2019-12-20 01:31 | Emergency (ER) | payer MEDICARE ==
[~2019-12-20] VITALS: Ht 152.4 cm; Wt 68.1 kg
[2019-12-20 02:36] LABS: ABSOLUTE LYMPHOCYTES 1.9 thou/uL (0.8-5.3); ABSOLUTE MONOCYTES 0.9 thou/uL (0.0-1.2); ABSOLUTE NEUTROPHILS 6.9 thou/uL (1.6-8.1); BASOPHILS 0.5 %; EOSINOPHILS 0.5 %; HEMATOCRIT 36.1 % (37.0-47.0); HEMOGLOBIN 12.1 gm/dL (12.0-15.0); LYMPHOCYTES 19.4 %; MCH 29.4 pg (26.0-34.0); MCHC 33.4 g/dL (28.0-37.0); MCV 88.1 fL (80.0-100.0); MONOCYTES 9.5 %; MPV 8.6 fl. (7.2-11.1); NUCLEATED RBCS 0 /100WBC; PLATELET COUNT* 241 thou/uL (150-400); POLYS 70.1 %; RDW-CV 15.6 % (10.5-14.5); WBC 9.8 thou/uL (4.0-11.0)
[2019-12-20 02:39] LABS: CALCIUM 9.1 mg/dL (8.5-10.1); CREATININE 1.2 mg/dL (0.6-1.3); POTASSIUM 4.3 mmol/L (3.5-5.1)
[2019-12-20 02:50] LABS: TOTAL BILIRUBIN 0.3 mg/dL (<0.1-1.0)
[2019-12-20 02:51] LABS: APTT 24.9 Seconds (25.0-31.3); PROTIME 10.3 Seconds (9.20-11.50)
[2019-12-20] MEDS ORDERED: NORFLEX100 MG PO (04:29)
[2019-12-20] MEDS ORDERED: HYDROCODON-ACE1 EAC7 PO (04:29)
[2019-12-20 05:02] VITALS: BP 165/96
--- NOTE | 2019-12-20 15:06 | EKG ---
[place] [address] ELECTROCARDIOGRAM REPORT Name: YOUSIF PINZON Room: [facility]#: [id number] Admission: 12/20/19 Attend Phys: Discharge: 12/20/19 Date of : 42 Date of Service: 12/20/19 0139 Report #: [id number] THIS REPORT FOR: //name// [facility] ED Test Date: 2019-12-20 Test Time: 01:39:22 Pat Name: YOUSIF PINZON Department: Room: Gender: Teasel Gig Operator: MAGDIEL : 1940 Requested By: Cierra Meyers Order Number: [id number] MD: Blake Madden Measurements Intervals [place] Rate: 83 P: -11 IN: 172 QRS: -22 QRSD: 90 T: 23 QT: 370 QTc: 435 Interpretive Statements Sinus rhythm Borderline left axis deviation Compared to ECG 12/07/2019 11:19:46 No significant changes Electronically Signed On 12-20-2019 15:06:41 CDT by Blake Madden [email or web address] <ELECTRONICALLY SIGNED> By: Blake Madden MD, [facility] 12/20/19 1506 0139 0139 Blake Madden MD, [facility] /EPI
== END 2019-12-20 05:02 | disposition home or self-care (01) ==
LOC: M.ERS 01:31
PROVIDERS: Personal Emergency Response Attendant
DX: M25.511 Pain in right shoulder (principal); R07.89 Other chest pain; E11.9 Type 2 diabetes mellitus without complications; M19.90 Unspecified osteoarthritis, unspecified site; J45.909 Unspecified asthma, uncomplicated; Z88.0 Allergy status to penicillin; Z88.5 Allergy status to narcotic agent; Z88.8 Allergy status to other drugs, medicaments and biological substances; Z90.710 Acquired absence of both cervix and uterus; Z90.49 Acquired absence of other specified parts of digestive tract; Z86.73 Personal history of transient ischemic attack (TIA), and cerebral infarction without residual deficits; Z86.718 Personal history of other venous thrombosis and embolism

== ENCOUNTER → 2020-01-18 | Outpatient (CLI) | payer MEDICARE ==
[~2020-01-18] MED LIST changes: +HYDROCODON-ACE1 EAC7 PO; +NORFLEX100 MG PO
== END ==
LOC: M.RAD 09:24
DX: Z12.31 Encounter for screening mammogram for malignant neoplasm of breast (principal)

== ENCOUNTER → 2020-02-06 | Outpatient (CLI) | payer MEDICARE ==
--- NOTE | 2020-02-06 13:44 | 2DMMODE ---
[place] [address] 2 D/M-MODE ECHOCARDIOGRAM Name: YOUSIF PINZON Room: [facility]#: [id number] Admission: 02/06/20 Attend Phys: Ángel Cox DO Discharge: Date of : 42 Date of Service: 02/06/20 1344 Report #: [id number] THIS REPORT FOR: cc: Ángel Cox Adam J DO Liston, Michael J. MD [facility] ~ APPROVED REPORT Study performed: 02/06/2020 09:46:02 EXAM: Comprehensive 2D, Doppler, and color-flow Echocardiogram Patient Location: Out-Patient BSA: 1.66 HR: 95 bpm BP: 166/88 mmHg Other Information Study Quality: Fair Indications Murmur 2D Dimensions IVSd: 11.91 (7-11mm) LVOT Diam: 20.15 (18-24mm) LVDd: 44.48 mm PWd: 10.16 (7-11mm) Ascending Ao: 29.03 (22-36mm) LVDs: 26.88 (25-40mm) Aortic Root: 28.54 mm Volumes Left Atrial Volume (Systole) LA ESV Index: 14.00 mL/m2 Aortic Valve AoV Peak Munir.: 0.95 m/s AO Peak Gr.: 3.64 mmHg LVOT Max P.00 mmHg AO Mean Gr.: 1.78 mmHg LVOT Mean P.97 mmHg LVOT Max V: 0.71 m/s AO V2 VTI: 14.86 cm LVOT Mean V: 0.46 m/s BILLIE (VTI): 2.50 cm2 LVOT V1 VTI: 11.66 cm Mitral Valve MV Decel. Time: 86.25 [place] [address] 2 D/M-MODE ECHOCARDIOGRAM Name: YOUSIF PINZON Room: [facility]#: [id number] Admission: 02/06/20 Attend Phys: Ángel Cox DO Discharge: Date of : 42 Date of Service: 02/06/20 1344 Report #: [id number] PHT: 25.01 ms MVA (PHT): 8.80 cm2 TDI Medial E' Munir.: 0.05 m/s Lateral E' Munir.: 0.07 m/s Pulmonary Valve PV Peak Munir.: 0.91 m/s PV Peak Gr.: 3.29 mmHg Left Ventricle The left ventricle is normal size. There is normal LV segmental wall motion. Mild concentric left ventricular hypertrophy. Left ventricular systolic function is normal. LVEF is 55-60%. This study is not technically sufficient to allow evaluation of the LV diastolic function. Right Ventricle The right ventricle is normal size. The right ventricular systolic function is normal. Atria The left atrium size is normal. The right atrium size is normal. Aortic Valve The aortic valve is normal in structure. No aortic regurgitation is present. There is no aortic valvular stenosis. Mitral Valve The mitral valve is normal in structure. There is no mitral valve regurgitation noted. No evidence of mitral valve stenosis. Tricuspid Valve The tricuspid valve is normal in structure. There is no tricuspid valve regurgitation noted. Pulmonic Valve The pulmonary valve is normal in structure. There is no pulmonic valvular regurgitation. Great Vessels The aortic root is normal in size. IVC is normal in size and collapses >50% with [place] [address] 2 D/M-MODE ECHOCARDIOGRAM Name: VIOLADANAKARINAYOUSIF Room: [facility]#: [id number] Admission: 02/06/20 Attend Phys: Ángel Cox DO Discharge: Date of : 42 Date of Service: 02/06/20 1344 Report #: [id number] There is no pericardial effusion. <Conclusion> The left ventricle is normal size. Mild concentric left ventricular hypertrophy. Left ventricular systolic function is normal. LVEF is 55-60%. There is normal LV segmental wall motion. IVC is normal in size and collapses >50% with inspiration. <ELECTRONICALLY SIGNED> By: Danilo Garcia MD, FAC 02/06/20 1344 1344 1344 Danilo Garcia MD, [facility] /INF
== END ==
LOC: M.CRD 09:24
PROVIDERS: ATTEND Family Medicine
DX: I51.7 Cardiomegaly (principal)

== ENCOUNTER 2020-04-10 16:15 | Emergency (ER) | payer MEDICARE ==
[~2020-04-10] VITALS: Ht 152.4 cm; Wt 67.6 kg
[2020-04-10 17:23] LABS: ABSOLUTE BASOPHILS 0.1 thou/uL (0.0-0.2); ABSOLUTE EOSINOPHILS 0.1 thou/uL (0.0-0.7); ABSOLUTE LYMPHOCYTES 2.1 thou/uL (0.8-5.3); ABSOLUTE MONOCYTES 0.6 thou/uL (0.0-1.2); ABSOLUTE NEUTROPHILS 5.6 thou/uL (1.6-8.1); BASOPHILS 1.1 %; EOSINOPHILS 0.6 %; HEMATOCRIT 37.2 % (37.0-47.0); LYMPHOCYTES 24.7 %; MCH 28.4 pg (26.0-34.0); MCHC 32.3 g/dL (28.0-37.0); MCV 87.9 fL (80.0-100.0); MONOCYTES 7.1 %; MPV 7.8 fl. (7.2-11.1); NUCLEATED RBCS 0 /100WBC; PLATELET COUNT* 240 thou/uL (150-400); POLYS 66.5 %; RBC 4.23 mil/uL (4.20-5.00); RDW-CV 17.5 % (10.5-14.5); WBC 8.5 thou/uL (4.0-11.0)
[2020-04-10 17:31] LABS: CALCIUM 9.1 mg/dL (8.5-10.1); POTASSIUM 4.1 mmol/L (3.5-5.1)
[2020-04-10 17:42] LABS: ALBUMIN 3.1 g/dL (3.4-5.0); MAGNESIUM 1.6 mg/dL (1.8-2.4); TOTAL BILIRUBIN 0.3 mg/dL (<0.1-1.0); TOTAL PROTEIN 7.3 g/dL (6.4-8.2)
[2020-04-10 18:48] VITALS: BP 166/84
--- NOTE | 2020-04-11 16:26 | EKG ---
[place] [address] ELECTROCARDIOGRAM REPORT Name: YOUSIF PINZON Room: [facility]#: [id number] Admission: 04/10/20 Attend Phys: Discharge: 04/10/20 Date of : 42 Date of Service: 04/10/20 171 Report #: [id number] THIS REPORT FOR: //name// [facility] ED Test Date: 2020-04-10 Test Time: 17:11:00 Pat Name: YOUSIF PINZON Department: Room: Gender: F Out Of School Hours Care Worker: COLE : 1940 Requested By: Jo Funez Order Number: [id number] MD: Blake Madden Measurements Intervals [place] Rate: 101 P: -12 [place]: 171 QRS: -30 QRSD: 90 T: 19 QT: 348 QTc: 452 Interpretive Statements Sinus tachycardia Left axis deviation R wave progression V2 to V3 of uncertain cause Compared to ECG 12/20/2019 01:39:22 Sinus rate has increased Electronically Signed On 04-11-2020 16:26:05 PAPER PATTERN INSPECTOR by Blake Madden [email or web address] <ELECTRONICALLY SIGNED> By: Blake Madden MD, FAC 04/11/20 1626 171 10 Blake Madden MD, [facility] /EPI
== END 2020-04-10 18:49 | disposition home or self-care (01) ==
LOC: M.ERS 16:15
PROVIDERS: Nurse Practitioner Family
DX: I87.2 Venous insufficiency (chronic) (peripheral) (principal); R60.0 Localized edema; J45.909 Unspecified asthma, uncomplicated; I73.9 Peripheral vascular disease, unspecified; E11.9 Type 2 diabetes mellitus without complications; M19.90 Unspecified osteoarthritis, unspecified site; Z86.73 Personal history of transient ischemic attack (TIA), and cerebral infarction without residual deficits; Z86.718 Personal history of other venous thrombosis and embolism; Z86.2 Personal history of diseases of the blood and blood-forming organs and certain disorders involving the immune mechanism; Z88.0 Allergy status to penicillin; Z88.5 Allergy status to narcotic agent; Z88.8 Allergy status to other drugs, medicaments and biological substances; Z90.710 Acquired absence of both cervix and uterus; Z90.49 Acquired absence of other specified parts of digestive tract

== ENCOUNTER 2020-09-30 10:38 | Emergency (ER) | payer MEDICARE ==
[~2020-09-30] VITALS: Ht 152.4 cm; Wt 63.0 kg
[2020-09-30] MEDS ORDERED: INVOKANA300 MG PO (11:02)
[2020-09-30 12:04] LABS: URINE BILIRUBIN NEGATIVE (Negative); URINE BLOOD NEGATIVE (Negative); URINE CLARITY CLEAR; URINE COLOR YELLOW; URINE GLUCOSE-RANDOM 3+ (Negative); URINE KETONES NEGATIVE (Negative); URINE LEUKOCYTES-REFLEX NEGATIVE (Negative); URINE NITRITE-REFLEX NEGATIVE (Negative); URINE PROTEIN 1+ (Negative); URINE UROBILINOGEN 0.2 E.U./dl (0.2-1.0)
[2020-09-30] MEDS ORDERED: NORCO5 PO (14:04)
[2020-09-30 14:23] VITALS: BP 145/81
--- NOTE | 2020-09-30 15:43 | EKG ---
[place] [address] ELECTROCARDIOGRAM REPORT Name: YOUSIF PINZON Room: [facility]#: [id number] Admission: 09/30/20 Attend Phys: Discharge: 09/30/20 Date of : 42 Date of Service: 09/30/20 1058 Report #: [id number] THIS REPORT FOR: //name// [facility] ED Test Date: 2020-09-30 Test Time: 10:58:35 Pat Name: YOUSIF PINZON Department: Room: Gender: F Case Management Rn: DSL : 1940 Requested By: Portillo Gutiérrez Order Number: [id number] Santiago MD: Ras Echeverria Measurements Intervals [place] Rate: 105 P: -9 [place]: 194 QRS: -34 QRSD: 86 T: 60 QT: 346 QTc: 458 Interpretive Statements Sinus tachycardia Left axis deviation Abnormal R-wave progression, late transition Minimal ST depression, lateral leads Compared to ECG 04/10/2020 17:11:00 Poor R-wave progression no longer present Electronically Signed On 09-30-2020 15:43:18 CDT by Ras Echeverria [email or web address] <ELECTRONICALLY SIGNED> By: Ras Echeverria MD, FAC 09/30/20 1543 1058 1058 Ras Echeverria MD, FAC /EPI
== END 2020-09-30 14:24 | disposition home or self-care (01) ==
LOC: M.ERS 10:38
PROVIDERS: Nurse Practitioner Family
DX: M54.5 Low back pain (principal); M19.90 Unspecified osteoarthritis, unspecified site; E11.9 Type 2 diabetes mellitus without complications; J45.909 Unspecified asthma, uncomplicated; Z88.0 Allergy status to penicillin; Z88.5 Allergy status to narcotic agent; Z88.8 Allergy status to other drugs, medicaments and biological substances; Z86.2 Personal history of diseases of the blood and blood-forming organs and certain disorders involving the immune mechanism; Z90.710 Acquired absence of both cervix and uterus; Z90.49 Acquired absence of other specified parts of digestive tract; Z86.73 Personal history of transient ischemic attack (TIA), and cerebral infarction without residual deficits; Z86.718 Personal history of other venous thrombosis and embolism; Z95.5 Presence of coronary angioplasty implant and graft